=== PATIENT | female | born 1995 | race Caucasian/White ===

== ENCOUNTER 2021-07-30 04:19 | Emergency (ER) | payer OTHER ==
[~2021-07-30] VITALS: Ht 162.6 cm; Wt 56.0 kg
[2021-07-30] MEDS ORDERED: CEPHALEXIN500 M1 PO (04:50)
[2021-07-30] MEDS ORDERED: PYRIDIUM200 MG PO (04:52)
== END 2021-07-30 05:05 | disposition home or self-care (01) ==
LOC: ED 04:19
DX: N39.0 Urinary tract infection, site not specified (principal); Z88.0 Allergy status to penicillin
CPT/HCPCS: 80053; 81001; 83690; 84703; 85025; 99284